=== PATIENT | male | born 1960 | race Hispanic/Latino ===

== ENCOUNTER 2021-06-21 22:43 | Emergency (ER) | payer BC, OTHER ==
[2021-06-21 23:16] LABS: Bilirubin Negative (Negative); Blood, Urine Negative (Negative); Clarity Clear (Clear); Glucose, Urine (Dipstick) Negative (Negative); Ketone, Urine Negative (Negative); Leukocyte Negative (Negative); Nitrite Negative (Negative); Protein, Urine (Dipstick) Negative (Neg-Trace); Urobilinogen 0.2 mg/dL (Less than 2)
[2021-06-21] MEDS ORDERED: Morphine 4 MG/ML VIAL ONE (23:16)
[2021-06-21] MEDS ORDERED: Ondansetron ODT 4 MG TAB ONE (23:16)
[2021-06-21] MEDS ORDERED: Cyclobenzaprine 10 MG TAB ONE (23:30)
[2021-06-21] MEDS ORDERED: Ketorolac Tromethamine 30 MG/ML VIAL ONE (23:30)
== END 2021-06-21 23:40 | disposition home or self-care (01) ==
LOC: BURERS 22:43
DX: M54.41 Lumbago with sciatica, right side (principal); F17.210 Nicotine dependence, cigarettes, uncomplicated; I25.2 Old myocardial infarction; Z85.72 Personal history of non-Hodgkin lymphomas; Z79.899 Other long term (current) drug therapy; Z79.891 Long term (current) use of opiate analgesic
CPT/HCPCS: 81003; 96372; 99283; J1885; J2270; Q0162

== ENCOUNTER 2021-07-24 14:29 | Emergency (ER) | payer BC ==
[2021-07-24 14:58] LABS: Bilirubin Negative (Negative); Blood, Urine Large (Negative); Clarity Cloudy (Clear); Glucose, Urine (Dipstick) Negative (Negative); Ketone, Urine Negative (Negative); Leukocyte Small (Negative); Nitrite Negative (Negative); Protein, Urine (Dipstick) 100 mg/dL (Neg-Trace); Specific Gravity, Urine 1.015 (1.005-1.030); Urobilinogen 0.2 mg/dL (Less than 2)
[2021-07-24 15:00] LABS: RBC/HPF 21-50 HPF (0-3); Squamous Epithelial 0-3 HPF (0-3)
[2021-07-24 15:01] LABS: Bacteria/HPF 3+ HPF (None Seen); Mucous/LPF 2+ LPF (<2+)
== END 2021-07-24 15:18 | disposition home or self-care (01) ==
LOC: BURERS 14:29
DX: R31.9 Hematuria, unspecified (principal); I25.2 Old myocardial infarction; F17.210 Nicotine dependence, cigarettes, uncomplicated
CPT/HCPCS: 81003; 81015; 87086; 99283

== ENCOUNTER 2022-01-28 16:14 | Emergency (ER) | payer BC, OTHER ==
[2022-01-28] MEDS ORDERED: Fleet Enema 133 ML BOT ONE (17:07)
[2022-01-28 17:15] LABS: ALT (SGPT) 10 U/L (8-55); AST (SGOT) 13 U/L (5-34); Albumin 4.3 g/dL (3.4-4.8); Alkaline Phosphatase 120 U/L (40-110); Anion Gap 17 mmol/L (10-20); BUN (Urea Nitrogen) 11 mg/dL (8.4-25.7); Bilirubin, Total 0.5 mg/dL (0.2-1.2); Calc. Creatinine Clearance 0 mL/min (70-130); Carbon Dioxide 25 mmol/L (23-31); Chloride 104 mmol/L (98-107); Globulin 2.4 g/dL (2.4-3.5); Glucose 111 mg/dL (80-115); Potassium 4.1 mmol/L (3.5-5.1); Protein, Total 6.7 g/dL (5.8-8.1); Sodium 142 mmol/L (136-145)
[2022-01-28 17:16] LABS: #Lymphocytes 0.9 thou/uL (1.20-3.40); #Monocytes 0.3 thou/uL (0.11-0.59); #Neutrophils 4.8 thou/uL (1.40-6.50); %Basophils 0.7 % (0.0-1.0); %Eosinophils 0.5 % (0.0-10.0); %Lymphocytes 15.3 % (21.0-51.0); %Monocytes 5.2 % (0.0-10.0); %Neutrophils 78.3 % (42.0-75.0); Hemoglobin 11.2 g/dL (14.0-18.0); Mean Corpuscular HGB CONC 33.5 g/dL (32.0-36.0); Mean Corpuscular Hemoglobin 37.8 pg (27.0-31.0); Platelet Count 45 thou/uL (130-400); RBC Distribution Width 17.8 % (11.5-14.5); Red Blood Cell (RBC) Count 2.95 mill/uL (4.70-6.10); White Blood Cell (WBC) Count 6.2 thou/uL (4.8-10.8)
[2022-01-28 18:47] LABS: Anisocytosis MODERATE=16-30 cells (100X) (0-5/hpf); Bite Cells SLIGHT = 2-5 cells (100X) (0-1/hpf); Elliptocytes SLIGHT = 2-5 cells (100X) (0-1/hpf); Hypochromia SLIGHT = 6-15 cells (100X) (0-5/hpf); MDiff Complete? YES; Macrocytosis MODERATE=16-30 cells (100X) (0-5/hpf); Platelet Morphology Comment Appears Decreased; Polychromasia SLIGHT = 2-3 cells (100X) (0-2/hpf); Schistocytes SLIGHT = 2-5 cells (100X) (0-1/hpf)
== END 2022-01-28 18:32 | disposition home or self-care (01) ==
LOC: BURERS 16:14
DX: K59.00 Constipation, unspecified (principal); R00.0 Tachycardia, unspecified; I49.8 Other specified cardiac arrhythmias; I25.2 Old myocardial infarction; F17.210 Nicotine dependence, cigarettes, uncomplicated; C85.90 Non-Hodgkin lymphoma, unspecified, unspecified site; Z79.899 Other long term (current) drug therapy
CPT/HCPCS: 74019; 80053; 83735; 85025; 93005